=== PATIENT | female | born 1960 | race Caucasian/White ===

== ENCOUNTER 2018-05-27 11:13 | Outpatient (CLI) | payer OTHER | END 2018-05-27 11:14 | disposition home or self-care (01) | LOC: BICMAMMO 11:13 | PROVIDERS: ATTEND Student in an Organized Health Care Education/Training Program | DX: Z12.31 Encounter for screening mammogram for malignant neoplasm of breast (principal); Z80.3 Family history of malignant neoplasm of breast | CPT/HCPCS: 77063; 77067 ==

== ENCOUNTER 2019-05-30 14:04 | Outpatient (CLI) | payer OTHER ==
--- NOTE | 2019-05-30 14:51 | MMO ---
Bilateral MAMMO Bilat Screen [facility]. CLINICAL HISTORY: Patient is 59 years old and is seen for screening. The patient has the following family history of breast cancer: sister, at age 42, malignant (generic). The patient has no personal history of cancer. VIEWS: The views performed were: bilateral craniocaudal with tomosynthesis and bilateral mediolateral oblique with tomosynthesis. FILMS COMPARED: The present examination has been compared to a prior imaging study performed at [facility] on 05/27/2018. MAMMOGRAM FINDINGS: There are scattered fibroglandular densities. There are no suspicious masses, suspicious calcifications, or new areas of architectural distortion. IMPRESSION: THERE IS NO MAMMOGRAPHIC EVIDENCE OF MALIGNANCY. A ROUTINE FOLLOW-UP MAMMOGRAM IN 1 YEAR IS RECOMMENDED. THE RESULTS OF THIS EXAM WERE SENT TO THE PATIENT. ACR BI-RADS Category 1 - Negative MAMMOGRAPHY NOTE: 1. A negative mammogram report should not delay a biopsy if a dominant of clinically suspicious mass is present. 2. Approximately 10% to 15% of breast cancers are not detected by mammography. 3. Adenosis and dense breasts may obscure an underlying neoplasm. Reported by: Karo STOLL Electonically Signed: [id number]
== END 2019-05-30 14:05 | disposition home or self-care (01) ==
LOC: BICMAMMO 14:04
PROVIDERS: ATTEND Student in an Organized Health Care Education/Training Program
DX: Z12.31 Encounter for screening mammogram for malignant neoplasm of breast (principal); Z80.3 Family history of malignant neoplasm of breast
CPT/HCPCS: 77063; 77067

== ENCOUNTER 2020-06-01 11:17 | Outpatient (CLI) | payer OTHER ==
--- NOTE | 2020-06-01 11:45 | MMO ---
Bilateral MAMMO Bilat Screen [facility]. CLINICAL HISTORY: Patient is 60 years old and is seen for screening. The patient has the following family history of breast cancer: sister, at age 42, malignant (generic). The patient has no personal history of cancer. VIEWS: The views performed were: bilateral craniocaudal with tomosynthesis and bilateral mediolateral oblique with tomosynthesis. FILMS COMPARED: The present examination has been compared to prior imaging studies performed at [facility] on 05/27/2018 and 05/30/2019. This study has been interpreted with the assistance of computer-aided detection. MAMMOGRAM FINDINGS: There are scattered fibroglandular densities. There are no suspicious masses, suspicious calcifications, or new areas of architectural distortion. IMPRESSION: THERE IS NO MAMMOGRAPHIC EVIDENCE OF MALIGNANCY. A ROUTINE FOLLOW-UP MAMMOGRAM IN 1 YEAR IS RECOMMENDED. THE RESULTS OF THIS EXAM WERE SENT TO THE PATIENT. ACR BI-RADS Category 1 - Negative MAMMOGRAPHY NOTE: 1. A negative mammogram report should not delay a biopsy if a dominant of clinically suspicious mass is present. 2. Approximately 10% to 15% of breast cancers are not detected by mammography. 3. Adenosis and dense breasts may obscure an underlying neoplasm. Reported by: SRIDHAR PLATT MD Electonically Signed: [id number]
== END 2020-06-01 11:18 | disposition home or self-care (01) ==
LOC: BICMAMMO 11:17
PROVIDERS: ATTEND Student in an Organized Health Care Education/Training Program
DX: Z12.31 Encounter for screening mammogram for malignant neoplasm of breast (principal); Z80.3 Family history of malignant neoplasm of breast
CPT/HCPCS: 77063; 77067

== ENCOUNTER 2021-06-04 13:05 | Outpatient (CLI) | payer BC | END 2021-06-04 13:06 | disposition home or self-care (01) | LOC: BICMAMMO 13:05 | PROVIDERS: ATTEND Student in an Organized Health Care Education/Training Program | DX: Z12.31 Encounter for screening mammogram for malignant neoplasm of breast (principal); Z80.3 Family history of malignant neoplasm of breast | CPT/HCPCS: 77063; 77067 ==

== ENCOUNTER 2022-06-06 09:37 | Outpatient (CLI) | payer BC | END 2022-06-06 09:38 | disposition home or self-care (01) | LOC: BICMAMMO 09:37 | PROVIDERS: ATTEND Obstetrics & Gynecology | DX: Z12.31 Encounter for screening mammogram for malignant neoplasm of breast (principal); Z80.3 Family history of malignant neoplasm of breast | CPT/HCPCS: 77063; 77067 ==

== ENCOUNTER 2022-06-13 13:08 | Outpatient (CLI) | payer BC | END 2022-06-13 13:09 | disposition home or self-care (01) | LOC: BICMAMMO 13:08 | PROVIDERS: ATTEND Obstetrics & Gynecology | DX: R92.8 Other abnormal and inconclusive findings on diagnostic imaging of breast (principal) | CPT/HCPCS: G0279 ==

== ENCOUNTER → 2022-06-20 | Day surgery (SDC) | payer BC | END | disposition home or self-care (01) | LOC: BICULT 12:45 | PROVIDERS: ATTEND Obstetrics & Gynecology | PROC: 0H9U3ZX Drainage of Left Breast, Percutaneous Approach, Diagnostic (ICD-10-PCS; principal; 2022-06-20) | DX: C50.212 Malignant neoplasm of upper-inner quadrant of left female breast (principal) | CPT/HCPCS: 19083; 88305; 88341; 88342 ==

== ENCOUNTER → 2022-07-30 | Day surgery (SDC) | payer BC | END | disposition home or self-care (01) | LOC: MAMMO 06:53 | PROVIDERS: ATTEND Surgery | PROC: 0H9U3ZX Drainage of Left Breast, Percutaneous Approach, Diagnostic (ICD-10-PCS; principal; 2022-07-30) | DX: D05.12 Intraductal carcinoma in situ of left breast (principal) | CPT/HCPCS: 19081; 19082; 76098; 88305; 88341; 88342; 88360 ==

== ENCOUNTER 2022-08-27 07:53 | Day surgery (SDC) | payer BC ==
[2022-08-26 10:24] VITALS: BMI 30.4
[2022-08-27] MEDS ORDERED: CEFAZOLIN 2 GM VIAL ONE (10:07)
[2022-08-27] MEDS ORDERED: Sodium Chloride 0.9% 100 ML ONE (10:07)
[2022-08-27] MEDS ORDERED: Acetaminophen 500 MG TAB ONE (10:07)
[2022-08-27] MEDS ORDERED: Lidocaine 1% MPF 2 ML VIAL ONE (10:07)
[2022-08-27] MEDS ORDERED: Ondansetron PF 4 MG/2 ML Vial ONE (10:30)
[2022-08-27] MEDS ORDERED: PHENYLEPHRINE-NS 100 MCG/ML 10 ML SYRINGE ONE (10:30)
[2022-08-27] MEDS ORDERED: Dexamethasone 20 MG/5 ML VIAL ONE (10:30)
[2022-08-27] MEDS ORDERED: PROPOFOL 200 MG/20 ML VIAL ONE (10:30)
[2022-08-27] MEDS ORDERED: Ketorolac Tromethamine 30 MG/ML VIAL ONE (10:30)
[2022-08-27] MEDS ORDERED: Bupivacaine/Epinephrine 0.25% 30 ML VIAL ONE (11:05)
[2022-08-27] MEDS ORDERED: Isosulfan Blue 50 MG/5 ML VIAL ONE (11:08)
[2022-08-27] MEDS ORDERED: fentaNYL Citrate/PF 100 MCG/2 ML SYRINGE ONE (11:10)
[2022-08-27] MEDS ORDERED: HYDROmorphone 2 MG/ML VIAL ONE (13:19)
== END 2022-08-27 17:54 | disposition home or self-care (01) ==
LOC: SDC 07:53
PROVIDERS: ATTEND Surgery
PROC: 0HTU0ZZ Resection of Left Breast, Open Approach (ICD-10-PCS; principal; 2022-08-27)
PROC: 07B60ZX Excision of Left Axillary Lymphatic, Open Approach, Diagnostic (ICD-10-PCS; principal; 2022-08-27)
DX: C50.312 Malignant neoplasm of lower-inner quadrant of left female breast (principal); D24.2 Benign neoplasm of left breast; N60.12 Diffuse cystic mastopathy of left breast; N60.82 Other benign mammary dysplasias of left breast; N62 Hypertrophy of breast; E78.00 Pure hypercholesterolemia, unspecified; E03.9 Hypothyroidism, unspecified; Z17.0 Estrogen receptor positive status [ER+]; Z87.891 Personal history of nicotine dependence; Z79.890 Hormone replacement therapy; Z79.899 Other long term (current) drug therapy
CPT/HCPCS: 78195; 88307; 88309; 88341; 88342; A9541; C1776; J1100; J1170; J1885; J2405; J2704; J3490; Q9968

== ENCOUNTER 2024-08-09 13:15 | Outpatient (CLI) | payer MEDICARE, BC | END 2024-08-09 13:16 | disposition home or self-care (01) | LOC: BICMAMMO 13:15 | PROVIDERS: ATTEND Internal Medicine Hematology & Oncology | DX: Z08 Encounter for follow-up examination after completed treatment for malignant neoplasm (principal); Z85.3 Personal history of malignant neoplasm of breast | CPT/HCPCS: 77065; G0279 ==